=== PATIENT | male | born 1995 ===

== ENCOUNTER 2017-05-08 17:02 | Emergency (ER) | payer BC, OTHER ==
[2017-05-08 17:17] VITALS: BP 114/66; PULSE 88; RESP 16; TEMP 98; O2SAT 99
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
== END 2017-05-08 20:01 | disposition home or self-care (01) ==
LOC: H.ER 17:02
DX: S00.33XA Contusion of nose, initial encounter (principal); W22.8XXA Striking against or struck by other objects, initial encounter; Y92.89 Other specified places as the place of occurrence of the external cause